=== PATIENT | male | born 1945 | race Caucasian/White ===

== ENCOUNTER 2017-01-08 15:04 | Day surgery (SDC) | payer BC ==
--- NOTE | 2017-01-16 09:11 | Operative Note ---
DATE OF SURGERY: 01/08/2017 PREOPERATIVE DIAGNOSIS: Hematuria and nocturia. POSTOPERATIVE DIAGNOSIS: Urethral stricture. PROCEDURE: Cystoscopy. Surgeon: Wei Thomason M.D. Anesthesia: Local. PROCEDURE: Preop informed consent was obtained. Antibiotics were given. The patient was brought to the [facility], kept supine with the genitalia prepped and draped sterilely. Flexible cystoscopy was performed. The anterior urethra appears unremarkable to the level of the distal bulbar versus proximal penile urethra where a very tight stricture was encountered. The lumen of the urethra at that point was extremely narrow. I was unable to traverse the stricture with the scope and at that point the procedure was terminated. The patient tolerated the procedure well. PLAN: The patient will be scheduled for a direct visual internal urethrotomy under anesthesia sometime in the near future. Wei Thomason M.D. CC: PHILIPPE MCCARTHY MD MTDD
== END 2017-01-08 15:34 | disposition home or self-care (01) ==
LOC: HOP 15:04
PROVIDERS: ATTEND Urology
DX: N35.9 Urethral stricture, unspecified (principal); R31.9 Hematuria, unspecified

== ENCOUNTER 2017-02-07 13:39 | Day surgery (SDC) | payer BC ==
[2017-02-07] MEDS ORDERED: *PACU ONLY* KETAMINE HCL 10 MG/ML (20ML) VIAL IV ONE (14:00)
[2017-02-07] MEDS ORDERED: FENTANYL PF 100MCG/2ML VIAL IV ONE (14:00)
[2017-02-07] MEDS ORDERED: MIDAZOLAM HCL 2MG/2ML VIAL IV ONE (14:00)
[2017-02-07] MEDS ORDERED: PROPOFOL 10 MG/ML VIAL IV ONE (14:00)
[2017-02-07 14:10] LABS: BASO % 0.7 % (0-6); GRAN % 59.6 % (47-80); HEMATOCRIT 49.1 % (42.0-52.0); HEMOGLOBIN 15.9 gm/dl (14.0-18.0); MEAN CELL VOLUME 87.8 fl (81-97); MEAN CORPUSCULAR HEMOGLOBIN 28.4 pg (27-33); MEAN CORPUSCULAR HGB CONC 32.4 g/dl (32-36); MEAN PLATELET VOLUME 9.7 fl (7.4-10.4); MONO % 9.7 % (0-9); PLATELET COUNT 218 K/uL (130-400); RED BLOOD COUNT 5.59 M/uL (4.40-5.70); RED CELL DISTRIBUTION WIDTH 13.9 % (11.5-14.5); WHITE BLOOD COUNT W/O DIFF 8.3 K/uL (4.2-12.2)
[2017-02-07 14:21] LABS: BLOOD UREA NITROGEN 19 mg/dL (9-20); CREATININE 1.1 mg/dL (0.66-1.25); EST GLOMERULAR FILTRATION RATE > 60 ml/min; GLUCOSE,RANDOM 96 mg/dL (70-110)
--- NOTE | 2017-02-09 11:56 | Operative Note ---
DATE OF SURGERY: 02/07/2017 PREOPERATIVE DIAGNOSIS: Urethral stricture. POSTOPERATIVE DIAGNOSIS: Urethral stricture and enlarged prostate with symptoms. OPERATION: Cystoscopy, direct visual internal urethrotomy. Anesthesia: General. Indication: The patient is a 71-year-old male with irritated voiding symptoms and on office cystoscopy was found to have a very tight urethral stricture. As such, he presents today for further investigation and management. PROCEDURE: Preop informed consent was obtained. Antibiotics were given. Sedation was administered. The patient was brought to the operating room and placed in lithotomy position with genitalia prepped and draped sterilely. Cystoscopy was performed after the meatus was calibrated with Meneses sounds. There was a very tight but short annular urethral stricture seen at the proximal penile urethra. I was unable to pass the scope through this tight stricture and the urethrotome was then used to incise the stricture radially to achieve a wide open urethra at that point. I was unable to advance the scope through the stricture into the more proximal urethra. The bulbar urethra appeared unremarkable. The prostatic urethra was entered and he has trilobar enlargement, which is significantly visually obstructive as well. The bladder was entered and inspected. Otherwise, no further abnormality was seen, and the ureteral orifice had normal appearance and positioning. The bladder does show some [id number] trabeculation. There was no tumor see and no evidence of bladder calculus or gallbladder. The scope was then withdrawn and a 16 [place] Renee was advanced. Urine was clear at the end of the procedure and he was awakened and transferred to recovery in stable condition. PLAN: The patient will have his catheter removed at home in 4 days and follow up in the [place] [facility] in 5 days on Saturday02/12/2017. We will perform a postvoid residual and review his symptoms at that time. CC: Dr. Babatunde BRITT
== END 2017-02-07 16:30 | disposition home or self-care (01) ==
LOC: SUR 13:39
PROVIDERS: ATTEND Urology
DX: N35.8 Other urethral stricture (principal); I10 Essential (primary) hypertension
CPT/HCPCS: 85025; 80048; 93005; 93010; 52276; 00910; J3010